=== PATIENT | male | born 1960 | race African-American/Black ===

== ENCOUNTER 2019-12-14 21:08 | Inpatient (IN) ==
[2019-12-14] MEDS ORDERED: PANTOPRAZOLE 40 MG VIAL IV STA (23:03)
[2019-12-14] MEDS ORDERED: SODIUM CHLORIDE 0.9% 1,000 ML IV STA (23:03)
[2019-12-14] MEDS ORDERED: ONDANSETRON 4 MG/2 ML VIAL IV STA (23:03)
[2019-12-14 23:15] LABS: Basophils % 0.3 % (0.0-0.8); Eosinophils % 0.2 % (0.00-10.9); Hematocrit 50.8 VOL% (42.0-52.0); Hemoglobin 16.9 GM/DL (14.0-18.0); Immature Granulocytes % 0.3 %; Immature Granulocytes Absolute 0.03 #; Lymphocytes # 1.2 10*3/uL (1.4-4.0); Lymphocytes % 11.2 % (21.2-54.2); Mean Corpuscular HGB Conc 33.3 GM/DL (32-36); Mean Corpuscular Volume 95.3 FL (87-102); Monocytes % 8.9 % (1.7-12.7); Neutrophils % 79.1 % (38.7-73.9); Platelet Count 295 T/CUMM (130-400); Red Blood Count 5.33 MC/CUMM (3.8-5.5); White Blood Count 10.3 T/CUMM (4-12)
[2019-12-14 23:43] LABS: Albumin 3.5 G/DL (3.4-5.0); Bilirubin,Total 0.7 MG/DL (0.2-1.0); Osmolality,Calculated 275.4 MOS/KG (273-304); Total Protein 9.3 G/DL (6.4-8.3)
[2019-12-15] MEDS ORDERED: GLUCAGON 1 MG VIAL IM PRN (00:49)
[2019-12-15] MEDS ORDERED: hydrALAZINE 20 MG/1 ML VIAL IV PRN (00:49)
[2019-12-15] MEDS ORDERED: DEXTROSE 50% 25 GM/50 ML VIAL IV PRN (00:49)
[2019-12-15] MEDS ORDERED: ONDANSETRON 4 MG/2 ML VIAL IV PRN (00:49)
[2019-12-15] MEDS ORDERED: NICOTINE 21 MG/24 HR PATCH TRANSDERM PRN (00:49)
[2019-12-15 01:22] LABS: Risk Ratio 3.18; VLDL CHOLESTEROL 24.6 MG/DL
[2019-12-15] MEDS: SODIUM CHLORIDE 0.9% 1,000 ML IV SCH ×4 (02:08→21:16)
[2019-12-15 02:41] LABS: Apearance,Urine CLEAR (Clear); Bilirubin,Urine Negative (Negative); Blood, Urine Negative (Negative); Glucose,Urine (UA) Negative (Negative); Ketones,Urine 20 mg/dL (Negative); Mucus,Urine Occasional /LPF (Occasional); Nitrite,Urine Negative (Negative); Protein,Urine 30 MG/DL; RBC,Urine 12 /HPF (0-4); Squamous Epithelial Cell,Urine Occasional /HPF (0-10); Urine Color Yellow (Yellow); Urine Specific Gravity > 1.060 (1.001-1.035); Urine Urobilinogen < 2.0 EU/DL (0.2-1.0); WBC,Urine 2 /HPF (0-6)
[2019-12-15 02:57] LABS: Lymphocytes 10 % (20-55); Segmented Neutrophils 81 % (50-85)
[2019-12-15 02:58] LABS: Platelet Estimate Normal; Total Cells Counted 100
[2019-12-15 07:45] LABS: Basophils % 0.4 % (0.0-0.8); Eosinophils # 0.1 10*3/uL (0.0-0.87); Eosinophils % 0.7 % (0.00-10.9); Hematocrit 44.1 VOL% (42.0-52.0); Hemoglobin 14.6 GM/DL (14.0-18.0); Immature Granulocytes % 0.5 %; Immature Granulocytes Absolute 0.05 #; Lymphocytes # 1.8 10*3/uL (1.4-4.0); Lymphocytes % 17.9 % (21.2-54.2); Mean Corpuscular HGB Conc 33.1 GM/DL (32-36); Mean Corpuscular Volume 96.9 FL (87-102); Mean Platelet Volume 9.9 FL (9.6-12.0); Monocytes % 12.2 % (1.7-12.7); Neutrophils % 68.3 % (38.7-73.9); Platelet Count 267 T/CUMM (130-400); Red Blood Count 4.55 MC/CUMM (3.8-5.5); Red Cell Distribution Width 13.2 % (9.3-17.3); White Blood Count 9.9 T/CUMM (4-12)
[2019-12-15] MEDS ORDERED: LORazepam 2 MG/1 ML VIAL IV PRN (07:52)
[2019-12-15] MEDS ORDERED: LORazepam 1 MG TABLET PO PRN (07:52)
[2019-12-15] MEDS: PANTOPRAZOLE 40 MG VIAL IV SCH ×2 (08:23→20:45)
[2019-12-15] MEDS: THIAMINE 200 MG/2 ML VIAL IV SCH (08:26)
[2019-12-15] MEDS ORDERED: propofoL 200 MG/20 ML VIAL IV ONE (09:00)
[2019-12-15] MEDS ORDERED: LIDOCAINE 2% 5 ML VIAL ONE (09:00)
[2019-12-15] MEDS ORDERED: POTASSIUM CHLORIDE RIDER 10 MEQ in PREMIX 1 EACH IV PRN (09:00)
[2019-12-15] MEDS ORDERED: LACTATED RINGERS 1,000 ML IV ONE (10:11)
[2019-12-15 13:07] LABS: Calcium 8.9 MG/DL (8.5-10.1); Osmolality,Calculated 277.7 MOS/KG (273-304)
[2019-12-15] MEDS: HEPARIN 5,000 UNIT/1 ML VIAL SUBCUT SCH (14:13)
[2019-12-16] MEDS: SODIUM CHLORIDE 0.9% 1,000 ML IV SCH ×3 (00:09→09:00)
[2019-12-16] MEDS: HEPARIN 5,000 UNIT/1 ML VIAL SUBCUT SCH (01:16)
[2019-12-16 07:05] LABS: Basophils # 0.1 10*3/uL (0.0-0.2); Basophils % 0.8 % (0.0-0.8); Eosinophils # 0.4 10*3/uL (0.0-0.87); Eosinophils % 5.1 % (0.00-10.9); Hematocrit 41.7 VOL% (42.0-52.0); Hemoglobin 13.7 GM/DL (14.0-18.0); Immature Granulocytes % 0.3 %; Immature Granulocytes Absolute 0.02 #; Lymphocytes # 1.8 10*3/uL (1.4-4.0); Lymphocytes % 22.8 % (21.2-54.2); Mean Corpuscular HGB Conc 32.9 GM/DL (32-36); Mean Corpuscular Volume 96.5 FL (87-102); Mean Platelet Volume 9.4 FL (9.6-12.0); Monocytes % 11.5 % (1.7-12.7); Neutrophils % 59.5 % (38.7-73.9); Platelet Count 233 T/CUMM (130-400); Red Blood Count 4.32 MC/CUMM (3.8-5.5); Red Cell Distribution Width 12.7 % (9.3-17.3); White Blood Count 7.8 T/CUMM (4-12)
[2019-12-16 07:25] LABS: Albumin 2.9 G/DL (3.4-5.0); Calcium 8.8 MG/DL (8.5-10.1); Osmolality,Calculated 271.8 MOS/KG (273-304)
[2019-12-16] MEDS ORDERED: LACTATED RINGERS 1,000 ML IV SCH (08:00)
[2019-12-16] MEDS: PANTOPRAZOLE 40 MG VIAL IV SCH (08:58)
[2019-12-16] MEDS: THIAMINE 200 MG/2 ML VIAL IV SCH (08:58)
[2019-12-16 14:11] VITALS: BP 179/88
[2019-12-17] MEDS ORDERED: PANTOPRAZOLE 40 MG TABLET PO SCH (09:00)
== END 2019-12-16 16:00 | disposition home or self-care (01) | DRG 242 ==
LOC: EDBD → EDUNIT# → N.ED 21:08 → N.EDINP 12-15 00:54 → N.3E 12-15 05:41
PROVIDERS: ADMIT Internal Medicine; ATTEND Internal Medicine